=== PATIENT | female | born 1965 | race American Indian/Alaskan Native ===

== ENCOUNTER 2021-03-26 18:16 | Emergency (ER) | payer BC ==
[2021-03-26] MEDS ORDERED: LIDOCAINE VISCOUS 2% 15 ML ORAL LIQD PO ONE (19:28)
[2021-03-26] MEDS ORDERED: ALUM-MAG HYDROXIDE-SIMETHICONE 200-200-20MG/5ML ORAL LIQD 30 ML PO ONE (19:28)
[2021-03-26] MEDS ORDERED: MORPHINE 4 MG/1 ML INJ IM ONE (19:28)
[2021-03-26] MEDS ORDERED: PANTOPRAZOLE 40 MG TAB PO ONE (19:28)
--- NOTE | 2021-03-26 19:36 | Emergency Department Report ---
ED Abdominal Pain HPI - General Chief Complaint: Abdominal Pain Stated Complaint: PAIN IN L ABD Time Seen by Provider: 03/26/21 19:20 Source: patient Mode of arrival: Ambulatory Limitations: No Limitations - History of Present Illness Initial Comments: Chief complaint abdominal pain HPI: This is a 56-year-old female with history of gastric bypass 2003 and hypertension who presents with recurrent left lower quadrant pain for several weeks. She was unable to tolerate omeprazole prescribed by her PCP. PCP called in the prescription to replace omeprazole. She was evaluated by her boiler water tester today. He ordered studies investigate the left lower quadrant abdominal pain. She had upper endoscopy on last year. She was not diagnosed with peptic ulcer disease at that time. She has bloating. She has pressure sensation. She did not have pain when she was evaluated by the GI physician today. After eating a salad, pain began. MD Complaint: abdominal pain -: Gradual, month(s) (Several months worse today) Location: [facility] Severity: moderate Severity scale (0 -10): 5 Quality: dull Consistency: constant Improves With: nothing Worsens With: eating Associated Symptoms: other (Bloating) - Related Data Previous Rx's Medication Instructions Recorded Last Taken Type Acetamin/Codeine 120-12Mg/5 ml 5 ml PO BID PRN #10 dose 01/09/14 Unknown Rx [Tylenol/Codeine] Amoxicillin/K Clav Tab [Augmentin 1 tab PO BID #10 tablet 01/09/14 Unknown Rx 875MG] Fluticasone [Flonase] 1 spray NS QDAY #1 bottle 01/09/14 Unknown Rx Allergies Allergy/AdvReac Type Severity Reaction Status Date / Time No Known Allergies Allergy Unverified 01/09/14 09:16 ED Review of Systems ROS: Stated complaint: PAIN IN L ABD Other details as noted in HPI Comment: All other systems reviewed and negative Constitutional: denies: chills, fever, malaise Respiratory: denies: cough, shortness of breath Gastrointestinal: abdominal pain, other (Normal BM today). denies: diarrhea, constipation ED Past Medical Hx - Past Medical History Previous Medical History?: Yes Hx Hypertension: Yes - Surgical History Past Surgical History?: Yes Additional Surgical History: hysterectomy, gastric bypass 2003 - Social History Smoking Status: Never Smoker Substance Use Type: Alcohol - Medications Home Medications: Home Medications Medication Instructions Recorded Confirmed Last Taken Type Acetamin/Codeine 120-12Mg/5 ml 5 ml PO BID PRN #10 dose 01/09/14 Unknown Rx [Tylenol/Codeine] Amoxicillin/K Clav Tab [Augmentin 1 tab PO BID #10 tablet 01/09/14 Unknown Rx 875MG] Fluticasone [Flonase] 1 spray NS QDAY #1 bottle 01/09/14 Unknown Rx ED Physical Exam - General Limitations: No Limitations General appearance: alert, in no apparent distress, other (Normal gait without hesitation) - Head Head exam: Present: atraumatic, normocephalic - Eye Eye exam: Present: normal appearance - ENT ENT exam: Present: mucous membranes moist - Neck Neck exam: Present: normal inspection, full ROM - Respiratory Respiratory exam: Present: normal lung sounds bilaterally. Absent: respiratory distress, wheezes, rales, rhonchi, stridor - Cardiovascular Cardiovascular Exam: Present: regular rate, normal rhythm, normal heart sounds. Absent: systolic murmur, diastolic murmur, rubs, gallop - GI/Abdominal GI/Abdominal exam: Present: soft, normal bowel sounds. Absent: distended, tenderness, guarding, rebound - Extremities Exam Extremities exam: Present: normal inspection - Neurological Exam Neurological exam: Present: alert, oriented X3 - Psychiatric Psychiatric exam: Present: normal affect, normal mood - Skin Skin exam: Present: warm, dry, intact, normal color. Absent: rash ED Course Vital Signs 03/26/21 18:19 Temperature 98.3 F Pulse Rate 83 Respiratory 14 Rate Blood Pressure 187/87 [Left] O2 Sat by Pulse 100 Oximetry ED Medical Decision Making - Medical Decision Making Clinical impression: Peptic ulcer disease versus gastritis patient received IM morphine, Maalox, viscous lidocaine, Protonix emergency department. She is being treated appropriately by her PCP. Recommended clear liquid diet. Critical care attestation.: If time is entered above; I have spent that time in minutes in the direct care of this critically ill patient, excluding procedure time. ED Disposition Clinical Impression: Peptic ulcer disease, Gastritis Disposition: 01 HOME / SELF CARE / HOMELESS Is pt being admited?: No Does the pt Need Aspirin: No Condition: Stable Instructions: Abdominal Pain (ED), Peptic Ulcer, [id number], Gastritis, Adult, [id number] Referrals: PRIMARY CARE, [Referring] - 3-5 Days
[2021-03-26 20:52] VITALS: BP 178/87
== END 2021-03-26 20:47 | disposition home or self-care (01) ==
LOC: ED 18:16
DX: K27.1 Acute peptic ulcer, site unspecified, with perforation (principal); K29.70 Gastritis, unspecified, without bleeding; F10.20 Alcohol dependence, uncomplicated; I10 Essential (primary) hypertension
CPT/HCPCS: 96372; 99282; J2270